=== PATIENT | female | born 1975 | race Caucasian/White ===

== ENCOUNTER 2016-06-23 17:12 | Emergency (ER) | payer MEDICAID ==
[2016-06-23] MEDS ORDERED: KETOROLAC 30 MG/ML VIAL ONE (19:10)
[2016-06-23] MEDS ORDERED: LORAZEPAM 2 MG/ML VIAL ONE (19:10)
[2016-06-23] MEDS ORDERED: SODIUM CHLORIDE 0.9% 500 ML IV ONE (19:10)
== END 2016-06-23 21:22 | disposition home or self-care (01) ==
LOC: ER 17:12
DX: R07.2 Precordial pain (principal); I10 Essential (primary) hypertension; F17.200 Nicotine dependence, unspecified, uncomplicated
CPT/HCPCS: 36415; 71010; 80053; 82550; 83735; 84484; 85025; 85610; 85730; 93005; 96361; 96374; 96375

== ENCOUNTER 2016-07-07 20:47 | Emergency (ER) | payer MEDICAID | END 2016-07-08 02:19 | disposition home or self-care (01) | LOC: ER 20:47 | DX: N92.0 Excessive and frequent menstruation with regular cycle (principal) | CPT/HCPCS: 36415; 76830; 80053; 81001; 83690; 84703; 85025 ==